=== PATIENT | female | born 1950 | race Caucasian/White ===

== ENCOUNTER 2019-03-04 16:58 | Emergency (ER) | payer OTHER ==
[~2019-03-04] VITALS: Ht 170.2 cm; Wt 116.6 kg
[~2019-03-04 16:58] MED LIST: ALBU0.0912 IH; AMLO10TA PO; BEN50 PO; CLON0.1T42 PO; CLOP75TA PO; FLUT1DSK IH; FURO-571 PO; HYDR-3638 PO; LEVO0.155 PO; LEVO500T6 PO; LIP80 PO; LISI10TA11 PO; LON2.5 PO; LORA10TA19 PO; METO25TA PO; MULT-1469 PO; PANT40EC PO; PHE6.25L PO; PHO667 PO
[2019-03-04 17:05] VITALS: BP 88/37
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
--- NOTE | 2019-03-04 17:53 | NUR ---
Dr. Hernandez re-evaluating patient at bedside.
--- NOTE | 2019-03-04 18:10 | NUR ---
good pms post marla tape/shoes
[2019-03-04 18:16] VITALS: BP 100/59
== END 2019-03-04 18:10 | disposition home or self-care (01) ==
LOC: MED 16:58
DX: S92.532A Displaced fracture of distal phalanx of left lesser toe(s), initial encounter for closed fracture (principal); I95.1 Orthostatic hypotension; E11.22 Type 2 diabetes mellitus with diabetic chronic kidney disease; I13.11 Hypertensive heart and chronic kidney disease without heart failure, with stage 5 chronic kidney disease, or end stage renal disease; N18.6 End stage renal disease; E06.9 Thyroiditis, unspecified; Z79.899 Other long term (current) drug therapy; Z99.2 Dependence on renal dialysis; W23.0XXA Caught, crushed, jammed, or pinched between moving objects, initial encounter; Y93.89 Activity, other specified; Y92.89 Other specified places as the place of occurrence of the external cause; Y99.8 Other external cause status
CPT/HCPCS: 73660; 99283; Q0092

== ENCOUNTER 2022-02-17 12:54 | Emergency (ER) | payer OTHER ==
[~2022-02-17] VITALS: Ht 165.1 cm; Wt 120.7 kg
[~2022-02-17 12:54] MED LIST changes: +CALC667C12 PO; +CLON0.1T16 PO; -CLON0.1T42 PO; +LISI-486 PO; -LISI10TA11 PO; -PHO667 PO
--- NOTE | 2022-02-17 12:54 | NUR ---
PT TAKEN TO ER BED 10 ALS FULL ARREST.
--- NOTE | 2022-02-17 12:56 | NUR ---
ON ARRIVAL ERMD, RT, RN, AND EMT AT PT BEDSIDE. CPR CONTINUED ON ARRIVAL. IV TO R AC 18G STARTED. SEE CODE BLUE RECORD.
--- NOTE | 2022-02-17 12:57 | NUR ---
PT INTUBATED 7.5, 23 AT THE TEETH. COLOR CHANGE NOTED BY RT.
--- NOTE | 2022-02-17 13:01 | NUR ---
Garett CALLED BY DR. BAUM.
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
--- NOTE | 2022-02-17 13:25 | NUR ---
SPOKE WITH DOMINIK FROM [facility] TO REPORT CARDIAC ARREST. Addendum: 02/17/22 at 1327 by [facility] CANDIDATE IS APPROPRIATE FOR ORGAN DONATION. [id number]
--- NOTE | 2022-02-17 13:28 | NUR ---
SPOKE WITH [employer] [facility] OPERATOR'S [employer]ICFE SARITHA TO REPORT.
--- NOTE | 2022-02-17 13:56 | NUR ---
SPOKE WITH LES SPENCER FROM [facility] OFFICE. BODY TO BE RELEASED NEED PATIENT'S PRIMARY PHYSICIAN NAME AND NUMBER. NEED MORTUARY INFORMATION. TO BE RELEASED AFTER PCP INFORMATION. REFERENCE #[id number] CALL LES SPENCER BACK WITH INFORMATION [phone]
--- NOTE | 2022-02-17 14:19 | NUR ---
PCP: HEATHER ALVARADO [phone] [facility] [address] JOYCE SEEN BY PT A WEEK AGO. [phone] LARA [phone]
--- NOTE | 2022-02-17 14:26 | NUR ---
SPOKE WITH ANI PAZ, BODY RELEASED. REFERENCE #[id number]
--- NOTE | 2022-02-17 14:30 | NUR ---
ATTEMPTED TO CALL PT PCP, NO ANSWER.
--- NOTE | 2022-02-17 15:15 | NUR ---
FAMILY SELECTED PERSONAL PLANNING. SPOKE WITH DOM. FAMILY IS SCHEDULED TO MEET WITH HIM AND SIGN PAPERS AT 1200 TOMORROW. DOM WILL THEN SET UP COMMODITY SPECIALIST AFTERWARDS. [facility] PAR[facility] PROFESSIONAL MADE AWARE. [phone], [address] [facility] [id number]
--- NOTE | 2022-02-17 15:20 | NUR ---
SPOKE WITH MICHAEL FROM [facility]. INFORMED HER THAT BODY IS RELEASED BY CORNER AND IS STILL IN THE UNIT. MORTUARY CONFIRMED
--- NOTE | 2022-02-17 16:56 | NUR ---
SPOKE WITH KAREN FROM [facility]. TOLD NEXT OF KIN IS STILL AT BEDSIDE. PER KAREN WILL CALL BACK WITHIN 1HR.
--- NOTE | 2022-02-17 17:35 | NUR ---
PT MOVED TO OUTSIDE [facility] [place]. CHART WITH SUPERINTENDENT TESTS.
--- NOTE | 2022-02-17 18:38 | NUR ---
SPOKE WITH KAREN FROM [facility]. PER KAREN WILL NOT PROCEED WITH ORGAN DONATION. BODY IS RELEASED.
== END 2022-02-17 13:01 ==
LOC: MED 12:54
DX: I46.9 Cardiac arrest, cause unspecified (principal); R55 Syncope and collapse; I11.0 Hypertensive heart disease with heart failure; I50.9 Heart failure, unspecified; E11.22 Type 2 diabetes mellitus with diabetic chronic kidney disease; I12.0 Hypertensive chronic kidney disease with stage 5 chronic kidney disease or end stage renal disease; N18.6 End stage renal disease; E07.9 Disorder of thyroid, unspecified; Z79.899 Other long term (current) drug therapy; Z99.2 Dependence on renal dialysis
CPT/HCPCS: 31500; 92950; 99285